=== PATIENT | female | born 1930 | race Caucasian/White ===

== ENCOUNTER 2016-09-13 21:00 | Emergency (ER) | payer MEDICARE, BC ==
[~2016-09-13] VITALS: Ht 160 cm; Wt 60.0 kg
[~2016-09-13 21:00] MED LIST: AMOXICILLIN 8751 TAB PO; ASPIRIN 81M81 MG/TA2 PO; CALTRATE 600600 MG PO; CALTRATE-600 W600 MG PO; CARDIZEM 30MG T30 MG PO; CARDIZEM CD 12120 MG PO; CARDIZEM120 MG PO; CEPHALEXIN500 M1 PO; COUMADIN4 MG PO; DOXYCYCLINE 10100 MG PO; ELIQUIS 2.5 PO; EPA FISH OIL1000 MG PO; FOSAMAX 70MG TA70 MG PO; HCTZ 25MG TAB25 MG PO; JANTOVEN1 MG PO; LIPITOR 10MG10 MG PO; MILK OF MA400 MG/52 PO; MIRALAX PA17 GM/Dose PO; MULTAQ400 MG PO; MULTI VITAMINS1 TAB PO; MULTIPLE VITAMI1 CAP PO; OMEGA 31000 MG PO; SYNTHROID0.075 MG/T PO; TAZTIA120 PO; TYLENOL; TYLENOL 500MG500 MG PO; VIT D; VITAMIN D 1001000 IU PO; VITAMIN D1000 IU PO
[2016-09-13] MEDS ORDERED: MULTAQ400 MG PO (21:29)
[2016-09-13] MEDS ORDERED: COUMADIN 3MG3 MG/TAB PO (21:29)
[2016-09-13] MEDS ORDERED: TIROSINT75 MC1 PO (21:31)
[2016-09-13 22:23] LABS: BASO % 0.3 % (0.0-2.0); EOS % 0.1 % (0-4.0); GRAN % 64.7 % (42.2-75.2); HEMATOCRIT 39.4 % (37.0-47.0); HEMOGLOBIN 13.5 g/dl (12.5-16.0); LYMPH # 2.1 (1.2-3.4); LYMPH % 27.6 % (20.0-51.0); MEAN CELL VOLUME 93 fl (80.0-100.0); MEAN CORPUSCULAR HEMOGLOBIN 32 pg (27.0-31.0); MEAN CORPUSCULAR HGB CONC 34 g/dl (33.0-37.0); MEAN PLATELET VOLUME 10.4 fl (7.4-10.4); MONO # 0.6 (0.1-0.6); MONO % 7.2 % (1.7-9.3); PLATELET COUNT 176 K/mm3 (130-400); RED BLOOD COUNT 4.24 M/mm3 (4.10-5.30); REDCELL DISTRIBUTION WIDTH-CV 12.1 % (11.5-14.5); WHITE BLOOD COUNT 7.7 K/mm3 (4.8-10.8)
[2016-09-13 22:34] LABS: ANION GAP 11 mmol/L (7-16); BLOOD UREA NITROGEN 11 mg/dL (7-17); CALCIUM 9.4 mg/dL (8.4-10.2); CARBON DIOXIDE 23 mmol/L (22-30); CHLORIDE 101 mmol/L (98-107); CREATININE, serum 0.76 mg/dL (0.52-1.25); GLUCOSE 167 mg/dL (74-106); SODIUM 135 mmol/L (137-145)
[2016-09-13 22:45] LABS: B-TYPE NATRIURETIC PEPTIDE 207 pg/mL (0-450)
[2016-09-13 22:47] LABS: TROPONIN-I < 0.012 ng/mL (0.000-0.034)
[2016-09-13] MEDS ORDERED: PREDNISONE20 MG PO (22:57)
[2016-09-13 23:14] VITALS: BP 121/64; PULSE 79; TEMP 97.8
== END 2016-09-14 00:17 | disposition home or self-care (01) ==
LOC: COL.ER 21:00
PROVIDERS: Emergency Medicine
DX: J06.9 Acute upper respiratory infection, unspecified (principal); R06.00 Dyspnea, unspecified
CPT/HCPCS: J7512

== ENCOUNTER 2017-08-02 09:32 | Emergency (ER) | payer MEDICARE, BC ==
[~2017-08-02] VITALS: Ht 160 cm; Wt 59.1 kg
[~2017-08-02 09:32] MED LIST changes: +COUMADIN 3MG3 MG/TAB PO; +PREDNISONE20 MG PO; +TIROSINT75 MC1 PO
[2017-08-02 09:36] VITALS: BP 143/88; TEMP 97.7
[2017-08-02 10:22] LABS: BASO # 0.1 (0.0-0.2); BASO % 1.1 % (0.0-2.0); EOS # 0.1 (0.0-0.7); EOS % 0.7 % (0-4.0); GRAN # 6.2 (1.4-6.5); GRAN % 75.5 % (42.2-75.2); HEMATOCRIT 43.4 % (37.0-47.0); HEMOGLOBIN 14.7 g/dl (12.5-16.0); LYMPH # 1.3 (1.2-3.4); LYMPH % 16.3 % (20.0-51.0); MEAN CELL VOLUME 94 fl (80.0-100.0); MEAN CORPUSCULAR HEMOGLOBIN 32 pg (27.0-31.0); MEAN CORPUSCULAR HGB CONC 34 g/dl (33.0-37.0); MONO # 0.5 (0.1-0.6); PLATELET COUNT 249 K/mm3 (130-400); RED BLOOD COUNT 4.63 M/mm3 (4.10-5.30); WHITE BLOOD COUNT 8.2 K/mm3 (4.8-10.8)
[2017-08-02 10:26] LABS: INR 2.5 (0.8-3.0); PROTHROMBIN TIME 28.5 SECONDS (9.7-12.8)
[2017-08-02] MEDS ORDERED: ALIGN PO (10:26)
[2017-08-02 10:32] LABS: ALANINE AMINOTRANSFERASE 38 U/L (9-52); ALBUMIN 4.5 gm/dL (3.5-5.0); ALKALINE PHOSPHATASE 59 U/L (50-136); ANION GAP 10 mmol/L (7-16); BILIRUBIN,TOTAL 1.1 mg/dL (0.0-1.0); BLOOD UREA NITROGEN 12 mg/dL (7-17); C-REACTIVE PROTEIN < 0.5 mg/dL (0.0-0.9); CALCIUM 9.4 mg/dL (8.4-10.2); CARBON DIOXIDE 22 mmol/L (22-30); CHLORIDE 105 mmol/L (98-107); GLUCOSE 97 mg/dL (74-106); POTASSIUM 4.3 mmol/L (3.4-5.0); SODIUM 137 mmol/L (137-145); TOTAL PROTEIN 7.7 gm/dL (6.4-8.2)
[2017-08-02 10:41] LABS: TROPONIN-I < 0.012 ng/mL (0.000-0.034)
[2017-08-02 10:58] LABS: COLLECTION METHOD CLEAN CATCH
[2017-08-02 11:08] LABS: PH 6 (5-8); SQUAMOUS EPITHELIAL None Seen /hpf; URINE APPEARANCE Clear; URINE BACTERIA Rare /hpf; URINE BILIRUBIN Negative (NEGATIVE); URINE BLOOD Negative (NEGATIVE); URINE COLOR Yellow; URINE GLUCOSE Negative (NEGATIVE); URINE KETONE Negative (NEGATIVE); URINE LEUKOCYTE ESTERASE Negative (NEGATIVE); URINE PROTEIN(semi-quant) Negative (NEGATIVE); URINE UROBILINOGEN Negative (NEGATIVE); URINE WBC 0-2 /hpf
[2017-08-02 11:34] VITALS: PULSE 67
== END 2017-08-02 11:33 | disposition home or self-care (01) ==
LOC: COL.ER 09:32
PROVIDERS: Family Medicine
DX: R07.89 Other chest pain (principal); Z79.01 Long term (current) use of anticoagulants

== ENCOUNTER 2018-02-25 11:49 | Emergency (ER) | payer MEDICARE, BC ==
[~2018-02-25] VITALS: Ht 160 cm; Wt 60.0 kg
[~2018-02-25 11:49] MED LIST changes: +ALIGN PO
[2018-02-25 11:52] VITALS: TEMP 97.5
[2018-02-25 13:36] VITALS: BP 158/82; PULSE 68
== END 2018-02-25 13:39 | disposition home or self-care (01) ==
LOC: COL.ER 11:49
DX: S00.93XA Contusion of unspecified part of head, initial encounter (principal); I10 Essential (primary) hypertension; K21.9 Gastro-esophageal reflux disease without esophagitis; E03.9 Hypothyroidism, unspecified; I48.91 Unspecified atrial fibrillation; E78.5 Hyperlipidemia, unspecified; Z79.01 Long term (current) use of anticoagulants; Z95.0 Presence of cardiac pacemaker; W18.39XA Other fall on same level, initial encounter; W22.8XXA Striking against or struck by other objects, initial encounter

== ENCOUNTER 2019-12-28 10:27 | Emergency (ER) | payer MEDICARE, BC ==
[~2019-12-28] VITALS: Ht 154.9 cm; Wt 59.4 kg
[2019-12-28 10:37] VITALS: TEMP 97.5
[2019-12-28 11:00] LABS: BASO # 0.1 (0.0-0.2); BASO % 0.7 % (0.0-2.0); EOS # 0.1 (0.0-0.7); EOS % 0.8 % (0-4.0); GRAN # 6.8 (1.4-6.5); GRAN % 71.3 % (42.2-75.2); HEMATOCRIT 40.5 % (37.0-47.0); HEMOGLOBIN 13.3 g/dl (12.5-16.0); LYMPH # 1.8 (1.2-3.4); LYMPH % 18.9 % (20.0-51.0); MEAN CELL VOLUME 94 fl (80.0-100.0); MEAN CORPUSCULAR HEMOGLOBIN 31 pg (27.0-31.0); MEAN CORPUSCULAR HGB CONC 33 g/dl (33.0-37.0); MEAN PLATELET VOLUME 9.9 fl (7.4-10.4); MONO # 0.8 (0.1-0.6); MONO % 7.9 % (1.7-9.3); PLATELET COUNT 271 K/mm3 (130-400); RED BLOOD COUNT 4.29 M/mm3 (4.10-5.30); REDCELL DISTRIBUTION WIDTH-CV 12.5 % (11.5-14.5)
[2019-12-28 11:09] LABS: ALBUMIN 4.2 gm/dL (3.5-5.0); BILIRUBIN,TOTAL 0.7 mg/dL (0.0-1.0); CALCIUM 9.5 mg/dL (8.4-10.2); CREATININE, serum 0.73 (0.52-1.25); POTASSIUM 4.1 mmol/L (3.4-5.0); TOTAL PROTEIN 7.6 gm/dL (6.4-8.2)
[2019-12-28 11:13] LABS: INR 3.6 (0.8-3.0); PROTHROMBIN TIME 43.4 SECONDS (9.7-12.8)
[2019-12-28 11:16] LABS: PARTIAL THROMBOPLASTIN TIME 60.4 SECONDS (26.0-37.0)
[2019-12-28 11:21] LABS: TROPONIN-I < 0.012 ng/mL (0.000-0.035)
[2019-12-28 12:08] LABS: COLLECTION METHOD CLEAN CATCH
[2019-12-28 12:13] LABS: PH 7 (5-8); SQUAMOUS EPITHELIAL None Seen /hpf; URINE APPEARANCE Clear; URINE BACTERIA None Seen /hpf; URINE BILIRUBIN Negative (NEGATIVE); URINE BLOOD Negative (NEGATIVE); URINE COLOR Yellow; URINE GLUCOSE Negative (NEGATIVE); URINE KETONE Negative (NEGATIVE); URINE LEUKOCYTE ESTERASE Negative (NEGATIVE); URINE NITRATE Negative (NEGATIVE); URINE PROTEIN(semi-quant) Negative (NEGATIVE); URINE UROBILINOGEN Negative (NEGATIVE)
[2019-12-28 14:36] VITALS: BP 122/62; PULSE 82
== END 2019-12-28 14:30 | disposition short-term general hospital (02) ==
LOC: COL.ER 10:27
PROVIDERS: Emergency Medicine
DX: I61.9 Nontraumatic intracerebral hemorrhage, unspecified (principal); R47.02 Dysphasia; I48.91 Unspecified atrial fibrillation; Z95.0 Presence of cardiac pacemaker; Z79.01 Long term (current) use of anticoagulants
CPT/HCPCS: C9132; J1953; J3430; J7050; Q9967

== ENCOUNTER → 2020-01-13 | Outpatient (CLI) | payer MEDICARE, BC | LOC: COL.RAD 12:52 | DX: I62.9 Nontraumatic intracranial hemorrhage, unspecified (principal); G93.9 Disorder of brain, unspecified ==

== ENCOUNTER 2020-04-09 10:00 | Outpatient (RCR) | payer MEDICARE, BC ==
[~2020-04-09 10:00] MED LIST changes: +CENTRUM SILVER1 CTB PO; +GOOD NEIGH1200 MG/15; +MIRALAX PA17 GM/Dose; +PACERONE100 MG PO; +TYLENOL 500MG500 MG
== END 2020-04-10 | disposition home or self-care (01) ==
LOC: MKS.ESL.PT
DX: S06.350A Traumatic hemorrhage of left cerebrum without loss of consciousness, initial encounter (principal)

== ENCOUNTER 2020-04-12 10:00 | Outpatient (RCR) | payer SELFPAY | END 2020-06-24 | disposition home or self-care (01) | LOC: MKS.ESL.PT | DX: I63.9 Cerebral infarction, unspecified (principal) ==

== ENCOUNTER 2020-07-09 10:49 | Emergency (ER) | payer MEDICARE, BC ==
[~2020-07-09] VITALS: Ht 154.9 cm; Wt 57.3 kg
[2020-07-09 12:10] LABS: HEMATOCRIT 41.5 % (37.0-47.0); HEMOGLOBIN 13.9 g/dl (12.5-16.0); MEAN CELL VOLUME 97 fl (80.0-100.0); MEAN CORPUSCULAR HEMOGLOBIN 33 pg (27.0-31.0); MEAN CORPUSCULAR HGB CONC 34 g/dl (33.0-37.0); MEAN PLATELET VOLUME 10.4 fl (7.4-10.4); PLATELET COUNT 233 K/mm3 (130-400); RED BLOOD COUNT 4.27 M/mm3 (4.10-5.30); REDCELL DISTRIBUTION WIDTH-CV 12.1 % (11.5-14.5)
[2020-07-09 12:52] VITALS: BP 163/88; PULSE 72; TEMP 98.2
[2020-07-09 12:58] LABS: BAND 7 % (0-10); BASOPHIL 3 % (0-2); METAMYELOCYTE 1 % (0-0); NEUTROPHILS 69 % (42.0-75.2)
[2020-07-09 12:59] LABS: LYMPHOCYTE 17 % (20.0-51.0); PLATELET ESTIMATE NORMAL (NORMAL)
== END 2020-07-09 13:05 | disposition home or self-care (01) ==
LOC: COL.ER 10:49
PROVIDERS: Family Medicine
DX: S06.0X0A Concussion without loss of consciousness, initial encounter (principal); S00.93XA Contusion of unspecified part of head, initial encounter; R40.2410 Glasgow coma scale score 13-15, unspecified time; Z86.73 Personal history of transient ischemic attack (TIA), and cerebral infarction without residual deficits; Z88.8 Allergy status to other drugs, medicaments and biological substances; W01.10XA Fall on same level from slipping, tripping and stumbling with subsequent striking against unspecified object, initial encounter

== ENCOUNTER 2020-11-27 14:50 | Emergency (ER) | payer MEDICARE, BC ==
[~2020-11-27] VITALS: Ht 154.9 cm; Wt 60.0 kg
[2020-11-27 14:53] VITALS: TEMP 98.5
[2020-11-27 16:25] VITALS: BP 148/70; PULSE 65
[2021-07-18] MEDS ORDERED: ZOFRAN ODT4 MG PO (20:07)
== END 2020-11-27 16:30 | disposition home or self-care (01) ==
LOC: COL.ER 14:50
DX: S09.90XA Unspecified injury of head, initial encounter (principal); I48.20 Chronic atrial fibrillation, unspecified; I25.10 Atherosclerotic heart disease of native coronary artery without angina pectoris; Z86.73 Personal history of transient ischemic attack (TIA), and cerebral infarction without residual deficits; Z95.0 Presence of cardiac pacemaker; Z88.8 Allergy status to other drugs, medicaments and biological substances; W01.10XA Fall on same level from slipping, tripping and stumbling with subsequent striking against unspecified object, initial encounter